=== PATIENT | male | born 1990 | race African-American/Black ===

== ENCOUNTER 2018-02-18 06:28 | Emergency (ER) | payer SELFPAY ==
[~2018-02-18] VITALS: Ht 185.4 cm; Wt 70.3 kg
[2018-02-18 06:31] VITALS: BP 118/58
--- NOTE | 2018-02-18 06:32 | NUR ---
bib LAFD 860 C/C OF LEFT TOE LAC. AA/OX4. LAC APPROX 3 INCHES. NO ACTIVE BLEEDING UPON ARRIVAL. POSITIVE PEDAL PULSES TO LEFT LOWER EXTREMITY. VSS. NAD STABLE CONDITION. AMBULATORY FROM AMBULANCE [facility] TO HOSPITAL BED. AWAITING MD SANCHEZ.
--- NOTE | 2018-02-18 06:32 | NUR ---
Note undone in ED - 02/18/18 at 0648 by LASHELL Sarmiento bib LAFD 860 C/C OF RIGHT TOE LAC. AA/OX4. LAC APPROX 3 INCHES. NO ACTIVE BLEEDING UPON ARRIVAL. VSS. NAD STABLE CONDITION. AMBULATORY FROM [facility]BULANCE [facility] TO HOSPITAL BED. AWAITING MD SANCHEZ. Addendum: 02/18/18 at 0645 by LASHELL Sarmiento Amendment undone in [facility] - 02/18/18 at 0648 by LASHELL Sarmiento POSITIVE PEDAL PULSES TO RIGHT LOWER EXTREMITY.
[2018-02-18] MEDS ORDERED: HYDROCODONE/APAP 5/325MG 1 EACH TABLET ONE (06:38)
[2018-02-18] MEDS ORDERED: HYDROCODONE/APAP 5/325MG 1 EACH TABLET PO ONE (07:00)
== END 2018-02-18 07:04 | disposition home or self-care (01) ==
LOC: ER 06:30
DX: S91.312A Laceration without foreign body, left foot, initial encounter (principal); W31.89XA Contact with other specified machinery, initial encounter; Y93.89 Activity, other specified; Y92.89 Other specified places as the place of occurrence of the external cause; Y99.8 Other external cause status
CPT/HCPCS: 12006; 99283; A4606; A6402; Z7610